=== PATIENT | female | born 1980 | race Caucasian/White ===

== ENCOUNTER 2022-01-04 15:57 | Emergency (ER) | payer MEDICAID, SELFPAY ==
[2022-01-04] VITALS (26 sets, daily range): BP systolic 106–150; BP diastolic 68–86; PULSE 67–84; RESP 11–25; TEMP 36.6; O2SAT 90–100
--- NOTE | 2022-01-04 15:45 | RT.EKG_ITS ---
APPROVED REPORT Exam: Resting ECG Reason for Exam: irregular heart beat Patient Location: E HR:76 bpm ECG Measurements Heart Rate 76 AXIS DE 158 P 82 QRSd 89 QRS 67 QT 363 T 57 QTc 411 Conclusion Sinus rhythm...normal P axis, V-rate 60- 99 Multiple ventricular premature complexes...V complexes w/ short R-R intervls
[2022-01-04 16:50] LABS: Abs Immature Grans 0.02 10^3/uL (0.0-0.06); Absolute Basophil Count 0.04 10^3/uL (0.0-0.2); Absolute Eosinophil Count 0.06 10^3/uL (0.0-0.7); Absolute Lymphocyte Count 1.78 10^3/uL (1.2-3.4); Absolute Neutrophil Count 5.12 10^3/uL (1.2-6.7); Basophils % 0.5; Eosinophils % 0.8; HCT 36.4 % (36.0-46.0); HGB 11.9 g/dL (11.2-15.7); Immature Grans % 0.3; Lymphocytes % 23.7; MCH 28.9 pg (27.0-33.0); MCHC 32.7 % (32.0-36.0); MCV 88.3 fL (80-95); MPV 9.5 fL (8.0-11.0); Monocytes % 6.6; Neutrophils % 68.1; Nucleated RBC 0 %; Platelet Count 252 10^3/uL (130-400); RBC 4.12 10^6/uL (3.93-5.22); RDW 14.6 % (11.7-14.6); RDW-SD 47.7 fL; WBC 7.52 10^3/uL (4.4-10.8)
[2022-01-04 17:15] LABS: HCG Qual (Serum) Negative
[2022-01-04 17:23] LABS: ALT 21 U/L (14-59); AST 13 U/L (15-37); Alkaline Phosphatase 49 U/L (46-116); Anion Gap 10.4 mmol/L (3-11); BUN 15 mg/dL (7-18); Bilirubin, Total 0.4 mg/dL (0.2-1.0); CO2 23.6 mmol/L (21.0-32.0); CREATININE 0.7 mg/dL (0.55-1.02); Calcium 8.6 mg/dL (8.5-10.1); Chloride 104 mmol/L (98-107); Glucose 109 mg/dL (74-106); Lipase 90 U/L (73-393); Magnesium 1.8 mg/dL (1.8-2.4); Potassium 3.3 mmol/L (3.5-5.1); Sodium 138 mmol/L (136-145); TSH (W/Ref FT4) 1.22 uIU/mL (0.36-3.74); Total Protein 7.3 g/dL (6.4-8.2)
--- NOTE | 2022-01-04 18:15 | HOLTER_ITS ---
APPROVED REPORT Conclusion This is a 48-hour Holter monitor ordered for palpitations Predominant rhythm was sinus with an average heart rate of 81. Minimum was 60, maximum 145 There were occasional ventricular ectopic beats, comprising 3.8% of total There were rare atrial premature beats There was no atrial fibrillation, no high-grade AV block, no pauses greater than 3 seconds An episode labeled SVT appeared to be sinus tachycardia, rate 145 There were no apparent patient symptoms
--- NOTE | 2022-01-04 18:43 | NUR.NOTE ---
Nursing Note: Referral given to Care Management for a PCP to establish care with routine follow up. Nataliia Cross
[2022-01-04 18:47] LABS: Troponin I < 50 ng/L (<or=60)
--- NOTE | 2022-01-04 19:00 | ED.GENADUL_ITS ---
Discharge Plan Disposition Patient Disposition: HOME Condition: Stable Discharge Details Clinical Impression: Heart palpitations Primary Care Provider: Reina,Local ED Provider: Ngozi Gary Home Meds and New Rx's Prescriptions: New potassium chloride 20 mEq tablet,ER particles/crystals 20 meq PO DAILY Qty: 5 RF: 0 potassium chloride 20 mEq tablet extended release 20 meq PO DAILY Qty: 5 RF: 0 Discharge Instructions Instructions: Heart Palpitations (ED) Additional Instructions: Return Holter monitor, at the indicated time Keep a journal of anything that might exacerbate your palpitations or fluttering Cut down on your coffee intake or any caffeinated beverage intake that you may have Return earlier should you have chest pain, shortness of breath, or should he have any new or worsening complaints We have placed you in a list for follow-up to establish care with a PCP, this is very important and he should have outpatient assessment Medical Decision Making Mild hypokalemia Supplemented with potassium, 3.3 The remainder of diagnostic labs do not show acute abnormality, EKG within normal limits, PVCs noted Holter monitor placed Does not have PCP, placed on list for follow-up Return precautions discussed and patient expressed understanding No evidence of significant laboratory abnormality contributing patient's symptoms today Low suspicion for coronary artery disease given clinical exam, negative troponin, and very low risk patient for cardiac disease Medical Records Medical records reviewed: Yes I reviewed the patient's medical records. Lab Data Lab results reviewed: Yes I reviewed the patient's lab results. HPI General Mode of arrival: ambulatory . Date/Time Provider Initiated Documentation: 01/04/22 16:28 . Limitations to Documentation: no limitations . Information obtained by: patient . HPI Narrative: This 41-year-old female presents with report of palpitations. When she has palpitations she experiences some pressure. She denies any chest pain. Been going on for the past 2 years but today it has been persistent. She denies any medications. She drinks approximately 4 cups of coffee daily, this is not changed. She denies known exacerbating or alleviating factors. Denies any pleuritic pain associated. Denies any exogenous hormones. Smokes marijuana occasionally. Denies any additional illicit drug use. Denies any associated shortness of breath or nausea. Denies any early family history of cardiac disease. Denies any personal history of hypertension or hyperlipidemia. Related Data Home Medications Medication Instructions Recorded Confirmed potassium chloride 20 meq PO DAILY #5 tab 01/04/22 potassium chloride 20 meq PO DAILY #5 tab 01/04/22 Previous Rx's Medication Instructions Recorded potassium chloride 20 meq PO DAILY #5 tab 01/04/22 potassium chloride 20 meq PO DAILY #5 tab 01/04/22 Allergies Allergy/AdvReac Type Severity Reaction Status Date / Time No Known Allergies Allergy Unverified 01/04/22 16:09 General Stated Complaint: Palpitatns LUIS ENRIQUE: 2 Review of Systems All systems reviewed & are unremarkable except as noted in HPI and below PFSH All Active Problems (Updated 01/04/22 @ 19:02 by LUCRETIA Boggs) Heart palpitations (Acute) Social History Smoking/Tobacco Use Status: Never Smoking risk assessment performed?: Yes Alcohol Intake: current Alcohol Intake frequency: a few times a week Drug use: Occasionally Substance use type: marijuana Do you feel safe at home: Yes Do you feel safe in your relationship?: Yes Exam Const General: cooperative and comfortable Orientation: alert and oriented x3 Eyes Pupils: PERRL Chest Chest: normal inspection of the chest Resp Effort & Inspection: normal respiratory effort Auscultation: clear to auscultation bilaterally Cardio Rate: regular rate Rhythm: regular rhythm Skin General skin exam: no rashes or lesions noted Neuro General: patient alert and patient oriented x3 Motor: strength 5/5 throughout and no pronator drift Sensory Exam: no sensory deficits noted Extrem Other: Distal pulses intact, no calf swelling or tenderness Course Vital Signs Vital signs: Vital Signs Pulse 74 01/04/22 16:03 Respiratory Rate 23 01/04/22 16:03 Blood Pressure 150/86 H 01/04/22 16:03 Pulse Oximetry 100 01/04/22 16:03 Temperature 36.6 C 01/04/22 16:05 Temperature Source Temporal Artery Scan 01/04/22 16:05 Pulse 76 01/04/22 18:15 Pulse 78 01/04/22 18:20 Respiratory Rate 24 01/04/22 18:20 Respiratory Effort 01/04/22 16:09 Blood Pressure 142/77 H 01/04/22 18:15 Blood Pressure Mean 95 01/04/22 18:15 Blood Pressure Position Supine 01/04/22 16:05 Pulse Oximetry 100 01/04/22 18:20 Oxygen Delivery Method Room Air 01/04/22 16:05 Oxygen Flow Rate 0 01/04/22 16:05 Pain Level 0 01/04/22 16:05 Lab/Test Results Lab/Test Results: Laboratory Tests Range/Units 01/04/22 01/04/22 01/04/22 16:35 16:35 16:35 WBC (4.4-10.8) 10^3/uL 7.52 RBC (3.93-5.22) 10^6/uL 4.12 Hgb (11.2-15.7) g/dL 11.9 Hct (36.0-46.0) % 36.4 MCV (80-95) fL 88.3 MCH (27.0-33.0) pg 28.9 MCHC (32.0-36.0) % 32.7 RDW (11.7-14.6) % 14.6 Plt Count (130-400) 10^3/uL 252 MPV (8.0-11.0) fL 9.5 Immature Gran % 0.3 Neutrophils % 68.1 Lymphocytes % 23.7 Monocytes % 6.6 Eosinophils % 0.8 Basophils % 0.5 Nucleated RBC % % 0 Absolute Neutrophils (1.2-6.7) 10^3/uL 5.12 Absolute Lymphocytes (1.2-3.4) 10^3/uL 1.78 Absolute Monocytes (0.1-0.8) 10^3/uL 0.50 Absolute Eosinophils (0.0-0.7) 10^3/uL 0.06 Absolute Basophils (0.0-0.2) 10^3/uL 0.04 Sodium (136-145) mmol/L 138 Potassium (3.5-5.1) mmol/L 3.3 L Chloride (98-107) mmol/L 104 Carbon Dioxide (21.0-32.0) mmol/L 23.6 Anion Gap (3-11) mmol/L 10.4 BUN (7-18) mg/dL 15 Creatinine (0.55-1.02) mg/dL 0.7 Estimated GFR/1.73 m2 (mL/min/1.73m2) >= 60.00 Glucose (74-106) mg/dL 109 H Calcium (8.5-10.1) mg/dL 8.6 Magnesium (1.8-2.4) mg/dL 1.8 Total Bilirubin (0.2-1.0) mg/dL 0.4 AST (15-37) U/L 13 L ALT (14-59) U/L 21 Alkaline Phosphatase (46-116) U/L 49 Troponin I (<or=60) ng/L Total Protein (6.4-8.2) g/dL 7.3 Albumin (3.4-5.0) g/dL 4.0 Lipase (73-393) U/L 90 TSH (0.36-3.74) uIU/mL 1.22 Serum HCG, Qual Negative Range/Units 01/04/22 16:35 WBC (4.4-10.8) 10^3/uL RBC (3.93-5.22) 10^6/uL Hgb (11.2-15.7) g/dL Hct (36.0-46.0) % MCV (80-95) fL MCH (27.0-33.0) pg MCHC (32.0-36.0) % RDW (11.7-14.6) % Plt Count (130-400) 10^3/uL MPV (8.0-11.0) fL Immature Gran % Neutrophils % Lymphocytes % Monocytes % Eosinophils % Basophils % Nucleated RBC % % Absolute Neutrophils (1.2-6.7) 10^3/uL Absolute Lymphocytes (1.2-3.4) 10^3/uL Absolute Monocytes (0.1-0.8) 10^3/uL Absolute Eosinophils (0.0-0.7) 10^3/uL Absolute Basophils (0.0-0.2) 10^3/uL Sodium (136-145) mmol/L Potassium (3.5-5.1) mmol/L Chloride (98-107) mmol/L Carbon Dioxide (21.0-32.0) mmol/L Anion Gap (3-11) mmol/L BUN (7-18) mg/dL Creatinine (0.55-1.02) mg/dL Estimated GFR/1.73 m2 (mL/min/1.73m2) Glucose (74-106) mg/dL Calcium (8.5-10.1) mg/dL Magnesium (1.8-2.4) mg/dL Total Bilirubin (0.2-1.0) mg/dL AST (15-37) U/L ALT (14-59) U/L Alkaline Phosphatase (46-116) U/L Troponin I (<or=60) ng/L < 50 Total Protein (6.4-8.2) g/dL Albumin (3.4-5.0) g/dL Lipase (73-393) U/L TSH (0.36-3.74) uIU/mL Serum HCG, Qual PAWSS Have you Been Recently Intoxicated or Drunk Within the Last 30 days?: No Have you Ever Experienced Previous Episodes of Alcohol Withdrawal?: No Have you ever Experienced Withdrawal Seizures?: No Have you ever Experienced Delirium Tremens(DT)s?: No Have you ever undergone Alcohol Rehabilitation Treatment (i.e, inpt ot outpatient treatment programs)?: No Have you ever Experienced Blackouts?: No Have you ever Combined Alcohol with other Downers within the last 90 days?: No Have you ever Combined Alcohol with any other Substance of Abuse during the last 90 days?: No Positive Blood Alcohol level on Presentation? [PCS.BAL]: No Evidence of Increased Autonomic Activity (i.e. HR>120, tremor, sweating, agitation, nausea)?: No Result: 0
[2022-01-04] MEDS: Potassium Chloride 20 MEQ TABCR PO (19:14)
--- NOTE | 2022-01-05 11:28 | CMACTNOTE_ITS ---
- If Service Date Differs Date of service: 01/05/22 Time of Service: 11:29 Care Management Activity Note Ayala is seen in the ED for heart palpitations. At the request of ED provider, CM coordinates a referral to YELENA Patel, of [facility], on-call provider, to assist Ayala in obtaining a follow up appointment and in establishing care with a PCP. She has Medicaid for insurance.
== END 2022-01-04 19:15 | disposition home or self-care (01) ==
PROVIDERS: Emergency Provider Physician Assistant
DX: R00.2 Palpitations (principal); E87.6 Hypokalemia; R07.89 Other chest pain
CPT/HCPCS: 80053; 83690; 93005; 99284; 83735; 84443; 84484; 84703; 85025; 93010; 93225; 99283

== ENCOUNTER 2022-01-04 18:19 | Outpatient (RCR) | payer MEDICAID, SELFPAY | END 2022-01-26 23:59 | disposition home or self-care (01) | LOC: RT 18:19 | PROVIDERS: Visit Provider Physician Assistant | DX: R55 Syncope and collapse (principal) | CPT/HCPCS: 93225; 93226 ==

== ENCOUNTER 2023-01-11 10:17 | Emergency (ER) | payer MEDICAID, SELFPAY ==
[2023-01-11] VITALS (95 sets, daily range): BP systolic 104–132; BP diastolic 57–75; PULSE 69–97; RESP 12–26; TEMP 37; O2SAT 96–99
--- NOTE | 2023-01-11 10:15 | RT.EKG_ITS ---
APPROVED REPORT Exam: Resting ECG Reason for Exam: heart palpitations dizzy Patient Location: E HR:96 bpm ECG Measurements Heart Rate 96 AXIS RI 143 P 81 QRSd 81 QRS 67 QT 339 T 52 QTc 421 Conclusion Sinus rhythm...normal P axis, V-rate 60- 99 Ventricular premature complex...V complex w/ short R-R interval
--- NOTE | 2023-01-11 10:30 | DI.RAD_ITS ---
Exam(s) XR CHEST 2V PA LATERAL EXAM: XR CHEST 2V PA LATERAL CLINICAL HISTORY: Palpitation, near syncope TECHNIQUE: 2D digital imaging was performed. COMPARISON: No exams were available for comparison FINDINGS: HEART: Normal size. Aorta: Not dilated. PULMONARY VASCULATURE: Normal. LUNGS: Hyperinflated. Clear. PLEURAL SPACE: No pleural effusion or pneumothorax. BONE:Unremarkable for age. IMPRESSION: No acute abnormality. DATA REPOSITORY: RADIATION DOSE DELIVERED:
--- NOTE | 2023-01-11 10:48 | ED.GENADUL_ITS ---
Discharge Plan Disposition Patient Disposition: Home Discharge Details Clinical Impression: Palpitations, Anxiety Primary Care Provider: Reina,Local ED Provider: Madeline Ramos Home Meds and New Rx's Prescriptions: New hydroxyzine HCl 10 mg tablet 10 mg PO TID PRN (Reason: anxiety) Qty: 10 0RF Rx Instructions: You may take 1 tablet at bedtime or up to 3 times daily as needed for anxiet y. It will make you sleepy. Please do not operate heavy machinery while taking this medication. No Action potassium chloride 20 mEq tablet,ER particles/crystals 20 meq PO DAILY Qty: 5 0RF potassium chloride 20 mEq tablet extended release 20 meq PO DAILY Qty: 5 0RF Discharge Instructions Instructions: Heart Palpitations (ED), Anxiety (ED) Additional Instructions: Please take the hydroxyzine medication as directed as needed for anxiety and palpitations. Do not operate heavy machinery while taking the medications. Wear the Holter monitor and have it removed as instructed by monitoring engineer. You are placed on care management list to assist in PCP establishment. Care management should be calling you or you can call around to make an appointment. Follow up with primary care provider in7-10 days. Return to ED sooner if any worsening or concerns. Increase oral fluids. Your labs and work-up were largely unremarkable no electrolyte abnormality no evidence of cardiac injury. Chest x-ray shows no cardiopulmonary or heart or lung abnormality. Discharge Data Discharge Date/Time-TO BE ENTERED AT DEPARTURE: 01/11/23 14:01 Medical Decision Making 42-year-old female presents to the ER with a chief complaint of palpitations, near syncope and feeling jittery for the last couple days she does have a history of anxiety. She does report some shortness of breath. Vital signs are stable upon arrival. EKG was reviewed by Dr. Alejandro Bullock ER attending, EKG does show slight ST elevation, please see official report. Work-up ordered including serial troponin, chest x-ray, and urine test D-dimer. Differential diagnosis includes CAD, long COVID, PE. Anxiety. She does state that she had COVID in November and tested negative on 13 December. Denies any cough fever nausea vomiting diarrhea or any other associated symptoms. She does not take any medications on a regular basis. She denies any control, recent long trips on the plane or car or swelling in her extremities. Cardiac work-up unremarkable to this point, no leukocytosis, electrolytes are all within normal limits, D-dimer is 149 which is within normal limits, initial troponin less than 50 which is negative, urinalysis also negative. Chest x-ray shows no acute abnormality. Holter monitor ordered and placed on patient for 48 hours. She has had this in the past approximately a year ago. At this time repeat troponin and repeat EKG pending. 1311: Repeat EKG shows no significant change occasional PVCs please see official report. Repeat troponin within normal limits, Discussed home care follow-up care with patient strict return instructions, patient given low-dose hydroxyzine as needed for anxiety. She verbalizes understanding is in agreement with plan of care. Patient was placed on care management list to assist her with PCP establishment. This text was generated using [employer] system, please disregard any oddities of phrase or misspellings. Medical Records Medical records reviewed: Yes I reviewed the patient's medical records. Imaging Data Radiologic Study: Imaging: X-Ray Radiologist's impression: EXAM:? XR CHEST 2V PA ? LATERAL CLINICAL HISTORY:? Palpitation, near syncope TECHNIQUE:? 2D digital imaging was performed. COMPARISON:? No exams were available for comparison FINDINGS: HEART: Normal size.? Aorta: Not dilated. PULMONARY VASCULATURE: Normal. LUNGS: Hyperinflated.? Clear. ? PLEURAL SPACE: No pleural effusion or pneumothorax. BONE:Unremarkable for age.? IMPRESSION: No acute abnormality.? Lab Data Lab results reviewed: Yes I reviewed the patient's lab results. Labs: Laboratory Tests Range/Units 01/11/23 01/11/23 01/11/23 10:57 10:57 10:57 WBC (4.4-10.8) 10^3/uL 6.87 RBC (3.93-5.22) 10^6/uL 4.16 Hgb (11.2-15.7) g/dL 12.3 Hct (36.0-46.0) % 36.8 MCV (80-95) fL 89 MCH (27.0-33.0) pg 29.6 MCHC (32.0-36.0) % 33.4 RDW (11.7-14.6) % 13.4 Plt Count (130-400) 10^3/uL 228 MPV (8.0-11.0) fL 10.0 Immature Gran % 0.3 Neutrophils % 74.9 Lymphocytes % 17.6 Monocytes % 6.4 Eosinophils % 0.4 Basophils % 0.4 Nucleated RBC % (0.0-0.3) % 0.0 Absolute Neutrophils (1.2-6.7) 10^3/uL 5.14 Absolute Lymphocytes (1.2-3.4) 10^3/uL 1.21 Absolute Monocytes (0.1-0.8) 10^3/uL 0.44 Absolute Eosinophils (0.0-0.7) 10^3/uL 0.03 Absolute Basophils (0.0-0.2) 10^3/uL 0.03 D-Dimer (<500) ng/mlFEU 149 Sodium (136-145) mmol/L 140 Potassium (3.5-5.1) mmol/L 3.8 Chloride (98-107) mmol/L 105 Carbon Dioxide (21.0-32.0) mmol/L 24.6 Anion Gap (3-11) mmol/L 10.4 BUN (7-18) mg/dL 11 Creatinine (0.55-1.02) mg/dL 0.6 Est GFR (CKD-EPI 2020) (mL/min/1.73m2) 114.15 Glucose (74-106) mg/dL 100 Calcium (8.5-10.1) mg/dL 9.2 Magnesium (1.8-2.4) mg/dL 1.8 Total Bilirubin (0.2-1.0) mg/dL 0.6 AST (15-37) U/L 17 ALT (14-59) U/L 19 Alkaline Phosphatase (46-116) U/L 50 Troponin I (<or=60) ng/L < 50 Total Protein (6.4-8.2) g/dL 7.0 Albumin (3.4-5.0) g/dL 3.9 Urine Color (Yellow) Urine Clarity (Clear) Urine pH (5-8) Ur Specific [place] (1.005-1.025) Urine Protein (Negative) mg/dL Urine Ketones (Negative) mg/dL Urine Blood (Negative) Urine Nitrite (Negative) Urine Bilirubin (Negative) Urine Urobilinogen (Up TO 0.2) EU/dL Ur Leukocyte Esterase (Negative) Urine Glucose (Negative) mg/dL Range/Units 01/11/23 11:03 WBC (4.4-10.8) 10^3/uL RBC (3.93-5.22) 10^6/uL Hgb (11.2-15.7) g/dL Hct (36.0-46.0) % MCV (80-95) fL MCH (27.0-33.0) pg MCHC (32.0-36.0) % RDW (11.7-14.6) % Plt Count (130-400) 10^3/uL MPV (8.0-11.0) fL Immature Gran % Neutrophils % Lymphocytes % Monocytes % Eosinophils % Basophils % Nucleated RBC % (0.0-0.3) % Absolute Neutrophils (1.2-6.7) 10^3/uL Absolute Lymphocytes (1.2-3.4) 10^3/uL Absolute Monocytes (0.1-0.8) 10^3/uL Absolute Eosinophils (0.0-0.7) 10^3/uL Absolute Basophils (0.0-0.2) 10^3/uL D-Dimer (<500) ng/mlFEU Sodium (136-145) mmol/L Potassium (3.5-5.1) mmol/L Chloride (98-107) mmol/L Carbon Dioxide (21.0-32.0) mmol/L Anion Gap (3-11) mmol/L BUN (7-18) mg/dL Creatinine (0.55-1.02) mg/dL Est GFR (CKD-EPI 2020) (mL/min/1.73m2) Glucose (74-106) mg/dL Calcium (8.5-10.1) mg/dL Magnesium (1.8-2.4) mg/dL Total Bilirubin (0.2-1.0) mg/dL AST (15-37) U/L ALT (14-59) U/L Alkaline Phosphatase (46-116) U/L Troponin I (<or=60) ng/L Total Protein (6.4-8.2) g/dL Albumin (3.4-5.0) g/dL Urine Color (Yellow) Yellow Urine Clarity (Clear) Clear Urine pH (5-8) 7.0 Ur Specific [place] (1.005-1.025) 1.015 Urine Protein (Negative) mg/dL Negative Urine Ketones (Negative) mg/dL Negative Urine Blood (Negative) Negative Urine Nitrite (Negative) Negative Urine Bilirubin (Negative) Negative Urine Urobilinogen (Up TO 0.2) EU/dL 0.2 Ur Leukocyte Esterase (Negative) Negative Urine Glucose (Negative) mg/dL Negative HPI General Date/Time Provider Initiated Documentation: 01/11/23 10:22 . Related Data Home Medications Medication Instructions Recorded Confirmed potassium chloride 20 mEq 20 meq PO DAILY #5 tabs 01/04/22 tablet,extended release potassium chloride 20 mEq 20 meq PO DAILY #5 tabs 01/04/22 tablet,extended release(part/cryst) hydroxyzine HCl 10 mg tablet 10 mg PO TID PRN anxiety #10 tabs 01/11/23 Previous Rx's Medication Instructions Recorded potassium chloride 20 mEq 20 meq PO DAILY #5 tabs 01/04/22 tablet,extended release potassium chloride 20 mEq 20 meq PO DAILY #5 tabs 01/04/22 tablet,extended release(part/cryst) hydroxyzine HCl 10 mg tablet 10 mg PO TID PRN anxiety #10 tabs 01/11/23 Allergies Allergy/AdvReac Type Severity Reaction Status Date / Time No Known Allergies Allergy Unverified 01/04/22 16:09 General Stated Complaint: Chest Pain LUIS ENRIQUE: 3 Review of Systems All systems reviewed & are unremarkable except as noted in HPI and below Cardiovascular Cardiovascular: Denies chest pain, Denies chest pain at rest, Denies syncope, Reports palpitations, Reports dyspnea and Denies dyspnea on exertion Comments: Pain reproducible with palpation and movement Respiratory Respiratory: Denies hemoptysis, Reports dyspnea and Denies dyspnea on exertion Gastrointestinal Gastrointestinal: Denies diarrhea, Denies nausea and Denies vomiting Musculoskeletal Musculoskeletal: Reports as per HPI Neurologic Neurologic: Denies syncope Endocrine Endocrine: Reports palpitations [facility] All Active Problems (Updated 01/11/23 @ 13:39 by Madeline Ramos NP) Palpitations (Acute) Anxiety (Chronic) Social History Smoking/Tobacco Use Status: Never Smoking risk assessment performed?: Yes Alcohol Intake: current Alcohol Intake frequency: a few times a week Drug use: Occasionally Substance use type: marijuana Do you feel safe at home: Yes Do you feel safe in your relationship?: Yes Exam Narrative Exam Narrative: Constitutional: Alert and oriented x3. Appears stated age. Normal body habitus. Head: Normocephalic, no trauma. Eyes: Pupils PERRL, Red reflex noted, EOM's intact. Eyelids symmetrical without lesions, discharge, or swelling. ENT: Bilateral TM's WNL, External ear normal to inspection, no mastoid TTP, swelling, or erythema, Nasal turbinates WNL, no nasal discharge. Normal dentition, Posterior pharynx WNL, no exudate. Chest: RRR, Normal S1, S2, distal pulses intact. Resp: Lungs clear to auscultation bilaterally, no wheezes, rales, or rhonchi. Abdomen: Soft, non-distended, Normoactive bowel sounds all 4 quads. Musculoskeletal: Normal gait, 5/5 strength to all four extremities. Skin: No suspicious rashes or lesions. Capillary refill less than 2 sec. Neurologic: Cranial nerves II-XII intact. Alert and oriented x 3. Motor: No deficits noted. Sensory: Intact bilaterally all 4 extremities. Reflexes: DTR's intact bilaterally.. Hematologic/Lymphatic: No ecchymosis, no lymphadenopathy. Course Vital Signs Vital signs: Vital Signs Respiratory Rate 18 01/11/23 10:22 Temperature 37.0 C 01/11/23 10:26 Temperature Source Oral 01/11/23 10:26 Pulse 87 01/11/23 10:26 Respiratory Rate 18 01/11/23 10:26 Respiratory Effort Normal, Non-Labored 01/11/23 10:22 Respiratory Depth Normal 01/11/23 10:22 Respiratory Pattern Normal 01/11/23 10:22 Blood Pressure 117/70 01/11/23 10:26 Pulse Oximetry 98 01/11/23 10:26 Oxygen Delivery Method Room Air 01/11/23 10:26 Oxygen Flow Rate 0 01/11/23 10:26
[2023-01-11 11:12] LABS: Abs Immature Grans 0.02 10^3/uL (0.0-0.06); Absolute Basophil Count 0.03 10^3/uL (0.0-0.2); Absolute Eosinophil Count 0.03 10^3/uL (0.0-0.7); Absolute Lymphocyte Count 1.21 10^3/uL (1.2-3.4); Absolute Monocyte Count 0.44 10^3/uL (0.1-0.8); Absolute Neutrophil Count 5.14 10^3/uL (1.2-6.7); Basophils % 0.4; Eosinophils % 0.4; HCT 36.8 % (36.0-46.0); HGB 12.3 g/dL (11.2-15.7); Immature Grans % 0.3; Lymphocytes % 17.6; MCH 29.6 pg (27.0-33.0); MCHC 33.4 % (32.0-36.0); MCV 89 fL (80-95); Monocytes % 6.4; Neutrophils % 74.9; Platelet Count 228 10^3/uL (130-400); RBC 4.16 10^6/uL (3.93-5.22); RDW 13.4 % (11.7-14.6); RDW-SD 43.6 fL; WBC 6.87 10^3/uL (4.4-10.8)
[2023-01-11 11:19] LABS: Bilirubin Negative (Negative); Blood Negative (Negative); Clarity Clear (Clear); Glucose Negative (Negative); Ketones Negative (Negative); Leukocyte Esterase Negative (Negative); Nitrite Negative (Negative); Specific Gravity 1.015 (1.005-1.025); Urobilinogen 0.2 EU/dL (Up TO 0.2)
[2023-01-11 11:34] LABS: ALT 19 U/L (14-59); AST 17 U/L (15-37); Albumin 3.9 g/dL (3.4-5.0); Alkaline Phosphatase 50 U/L (46-116); Anion Gap 10.4 mmol/L (3-11); BUN 11 mg/dL (7-18); Bilirubin, Total 0.6 mg/dL (0.2-1.0); CO2 24.6 mmol/L (21.0-32.0); CREATININE 0.6 mg/dL (0.55-1.02); Calcium 9.2 mg/dL (8.5-10.1); Chloride 105 mmol/L (98-107); Estimated GFR 114.15 (mL/min/1.73m2); Glucose 100 mg/dL (74-106); Magnesium 1.8 mg/dL (1.8-2.4); Potassium 3.8 mmol/L (3.5-5.1); Sodium 140 mmol/L (136-145); Troponin I < 50 ng/L (<or=60)
[2023-01-11 11:40] LABS: D-Dimer 149 ng/mlFEU (<500)
--- NOTE | 2023-01-11 12:00 | HOLTER_ITS ---
APPROVED REPORT Conclusion This is a 48-hour Holter monitor ordered for palpitations Rhythm throughout was sinus with an average heart rate of 79. Minimum was 61, maximum 148 There were moderately frequent ventricular ectopic beats, rare couplets, no ventricular tachycardia There was no atrial fibrillation no high-grade AV block no pauses greater than 3 seconds
--- NOTE | 2023-01-11 12:45 | RT.EKG_ITS ---
APPROVED REPORT Exam: Resting ECG Reason for Exam: Repeat, Palpitations, SOB Patient Location: E HR:79 bpm ECG Measurements Heart Rate 79 AXIS MD 152 P 78 QRSd 83 QRS 73 QT 372 T 24 QTc 429 Conclusion Sinus rhythm...normal P axis, V-rate 60- 99 Ventricular premature complex...V complex w/ short R-R interval Physician: no stemi
[2023-01-11 13:27] LABS: Troponin I < 50 ng/L (<or=60)
--- NOTE | 2023-01-11 13:40 | NUR.NOTE ---
holter monitor has been applied to pt
--- NOTE | 2023-01-11 13:48 | NUR.NOTE ---
Nursing Note:Referral given to Care Management for needs PCP, establish care, palpitations, holter monitor results/1 to 2 weeks.
== END 2023-01-11 14:01 | disposition home or self-care (01) ==
PROVIDERS: Emergency Provider Registered Nurse Emergency
DX: F41.9 Anxiety disorder, unspecified (principal); R00.2 Palpitations; R55 Syncope and collapse
CPT/HCPCS: 36415; 80053; 81025; 93005; 99284; 71046; 81003; 83735; 84484; 85025; 85379; 93010; 93225; 99285

== ENCOUNTER 2023-01-11 12:15 | Outpatient (RCR) | payer MEDICAID, SELFPAY | END 2023-01-26 23:59 | disposition home or self-care (01) | LOC: CARDOPNVT 12:15 | PROVIDERS: Visit Provider Student in an Organized Health Care Education/Training Program | DX: R00.2 Palpitations (principal) | CPT/HCPCS: 93225; 93226 ==

== ENCOUNTER 2023-09-24 22:04 | Outpatient (REF) | payer MEDICAID, SELFPAY ==
[2023-09-24 21:35] LABS: Bilirubin Negative (Negative); Blood Large (Negative); Clarity Clear (Clear); Glucose Negative (Negative); Ketones Negative (Negative); Leukocyte Esterase Large (Negative); Nitrite Negative (Negative); Urobilinogen 0.2 mg/dL (Up to 0.2); pH 6.5 (5-8)
[2023-09-24 21:44] LABS: Bacteria Few HPF (Negative); Epithelial Cells Rare HPF (Negative); WBC >50 HPF (0-5)
[2023-09-24 21:45] LABS: C & S Indicated? Yes; Casts Negative LPF (Negative); Crystals Negative HPF (Negative); Mucus Trace (Negative)
== END 2023-09-24 22:05 | disposition home or self-care (01) ==
LOC: LBN 22:04
PROVIDERS: Visit Provider Nurse Practitioner Family
DX: N39.0 Urinary tract infection, site not specified (principal)
CPT/HCPCS: 87077; 81003; 81015; 87086; 87186

== ENCOUNTER 2025-04-20 00:34 | Outpatient (CLI) | payer MEDICAID, SELFPAY ==
--- NOTE | 2025-04-20 07:45 | DI.RAD_ITS ---
Exam(s) XR CHEST 2V PA LATERAL EXAM: XR CHEST 2V PA LATERAL CLINICAL HISTORY: cough, ? pneumonia TECHNIQUE: 2D digital imaging was performed. Two views. COMPARISON: No exams were available for comparison FINDINGS: HEART: Normal size. Aorta: Not dilated. PULMONARY VASCULATURE: Normal. MEDIASTINUM: Unremarkable. LUNGS: Hyperinflated but clear. PLEURAL SPACE: No pleural effusion or pneumothorax. BONE:Unremarkable for age. SOFT TISSUES: Unremarkable. IMPRESSION: No acute abnormality. DATA REPOSITORY: RADIATION DOSE DELIVERED:
== END 2025-04-20 00:54 ==
LOC: DI 00:37
PROVIDERS: Visit Provider Physician Assistant
DX: R05.9 Cough, unspecified (principal)
CPT/HCPCS: 71046

== ENCOUNTER 2025-05-21 18:30 | Outpatient (REF) | payer MEDICAID, SELFPAY ==
[2025-05-21 19:43] LABS: Abs Immature Grans 0.02 10^3/uL (0.0-0.06); Absolute Basophil Count 0.03 10^3/uL (0.0-0.2); Absolute Eosinophil Count 0.05 10^3/uL (0.0-0.7); Absolute Lymphocyte Count 1.75 10^3/uL (1.2-3.4); Absolute Monocyte Count 0.54 10^3/uL (0.1-0.8); Absolute Neutrophil Count 5.63 10^3/uL (1.2-6.7); Basophils % 0.4 %; Eosinophils % 0.6 %; HCT 34.8 % (36.0-46.0); HGB 10.9 g/dL (11.2-15.7); Immature Grans % 0.2 %; Lymphocytes % 21.8 %; MCHC 31.3 % (32.0-36.0); MCV 86 fL (80-95); MPV 9.7 fL (8.0-11.0); Monocytes % 6.7 %; Neutrophils % 70.3 %; Platelet Count 293 10^3/uL (130-400); RBC 4.04 10^6/uL (3.93-5.22); RDW 14.9 % (11.7-14.6); RDW-SD 47.4 fL; WBC 8.02 10^3/uL (4.4-10.8)
[2025-05-21 20:05] LABS: Hemoglobin A1C 5.4 % (<5.7)
[2025-05-21 20:27] LABS: ALT 41 U/L (14-59); AST 23 U/L (15-37); Albumin 4.2 g/dL (3.4-5.0); Alkaline Phosphatase 65 U/L (46-116); Anion Gap 7.3 mmol/L (3-11); BUN 13 mg/dL (7-18); Bilirubin, Total 0.4 mg/dL (0.2-1.0); CO2 28.7 mmol/L (21.0-32.0); CREATININE 0.8 mg/dL (0.55-1.02); Calcium 8.8 mg/dL (8.5-10.1); Calculated LDL 72 mg/dL (<100); Chloride 102 mmol/L (98-107); Cholesterol 152 mg/dL (<200); Estimated GFR 92.54 (mL/min/1.73m2); Glucose 86 mg/dL (74-106); HDL Cholesterol 73 mg/dL (>or=50); Potassium 3.7 mmol/L (3.5-5.1); Sodium 138 mmol/L (136-145); TSH (W/Ref FT4) 1.49 uIU/mL (0.36-3.74); Total Protein 7.1 g/dL (6.4-8.2); Triglyceride 37 mg/dL (<150); Vitamin D 25 Total 19 ng/mL (30-100)
[2025-05-22 19:46] LABS: HIV-1/2 Ag & Ab Screen Negative (Negative)
[2025-05-22 19:49] LABS: Hepatitis C Ab w Rflx HCV PCR Negative (Negative)
== END 2025-05-21 18:31 | disposition home or self-care (01) ==
LOC: NCHCN 18:30
PROVIDERS: Visit Provider Nurse Practitioner Family
DX: Z13.220 Encounter for screening for lipoid disorders (principal); N92.0 Excessive and frequent menstruation with regular cycle; R53.82 Chronic fatigue, unspecified; Z13.1 Encounter for screening for diabetes mellitus; Z11.59 Encounter for screening for other viral diseases; Z11.4 Encounter for screening for human immunodeficiency virus [HIV]
CPT/HCPCS: 80053; 80061; 82306; 86803; 87389; 83036; 84443; 85025

== ENCOUNTER 2025-06-18 00:26 | Outpatient (CLI) | payer MEDICAID, SELFPAY ==
--- NOTE | 2025-06-18 | DI.MAMMO_ITS ---
Exam(s) MAMMO SCREENING EXAM: MAMMO SCREENING CLINICAL HISTORY: SCREENING MAMMO Z12.31,BASELINE TECHNIQUE: Mammograms were interpreted according to the usual protocol including computer analysis with CAD system, tomosynthesis and C-view imaging. COMPARISON: None. Baseline examination FINDINGS: The breasts are composed of heterogeneously dense fibroglandular densities, Breast Density category C. No suspicious masses or suspicious microcalcifications are seen. No skin thickening or abnormal axillary lymph nodes are seen. IMPRESSION: BI-RADS Category 1, Negative mammogram. Yearly screening mammography is recommended. Breast Density: Category C - The breasts are heterogeneously dense, which may obscure small masses. Breast density Category C or D implies that the patient has dense breast tissue. Dense breast tissue can make it harder to find cancer on a mammogram. Dense breast tissue is also associated with an increased risk of breast cancer. This information about the result of the mammogram report was provided to the patient to raise their awareness. Use this report when you speak with the patient about their risks for breast cancer, which includes their family history. At that time, you may recommend additional screening tests (Ultrasound or MRI) as these tests may add significant information. A negative radiographic report should not delay biopsy if a dominant or clinically suspicious mass is present. Up to ten percent of cancers are not identified on mammography. A negative report may reinforce clinical impression. Adenosis and dense breasts may obscure an underlying neoplasm. False positive reports average 6 to 10%.
== END 2025-06-18 00:46 ==
LOC: DI 00:27
PROVIDERS: PCP Nurse Practitioner Family; Visit Provider Nurse Practitioner Family
DX: Z12.31 Encounter for screening mammogram for malignant neoplasm of breast (principal); R92.333 Mammographic heterogeneous density, bilateral breasts
CPT/HCPCS: 77063; 77067

== ENCOUNTER 2025-06-21 08:24 | Day surgery (SDC) | payer MEDICAID, SELFPAY ==
[2025-06-21 08:39] VITALS: BP 125/79; PULSE 75; RESP 16; TEMP 36.1; O2SAT 98
[2025-06-21] MEDS: Lactated Ringers 1,000 ML 80 ML IV (08:58)
--- NOTE | 2025-06-21 09:16 | W.ANESPRE ---
General Info Date of Service Date Performed: 06/21/25 Height: 5 ft 6.25 in Weight: 66.6 kg Body Mass Index (BMI): 23.5 Surgical Procedure: Operation Date: 06/21/25 10:35 Proposed Procedure Side Surgeon milvia Elkins MD Meds Allergies and Home Medications Allergies Allergy/AdvReac Type Severity Reaction Status Date / Time No Known Allergies Allergy Verified 06/21/25 08:37 Home Medication ?Medication ?Instructions ?Recorded hydroxyzine HCl 10 mg tablet 10 mg PO TID PRN anxiety #10 tabs 01/11/23 albuterol sulfate 90 mcg/actuation 2 puff inhalation Q6H PRN 04/19/25 aerosol inhaler shortness of breath or wheezing #8.5 grams inhalational spacing device #1 ea 04/19/25 (Aerochamber MV spacer) bisacodyl 5 mg tablet,delayed 5 mg PO ONCE #4 tabs 06/13/25 release (Dulcolax (bisacodyl)) polyethylene glycol 3350 17 17 g PO ONCE #238 grams 06/13/25 gram/dose oral powder Current Visit Medications: Current Medications Generic Name Dose Route Start Last Admin Trade Name Freq PRN Reason Stop Dose Admin Ringer's Solution 1,000 mls @ 80 mls/hr 06/21/25 06:00 06/21/25 08:58 IV 06/21/25 23:59 80 mls/hr INFUSION JOEL Administration IV Miscellaneous Supplies 1 each 06/21/25 06:00 Iv Access IV 06/21/25 23:59 DIRECTED JOEL Sodium Biphosphate/Sodium Phosphate 133 ml 06/21/25 06:00 Na Phosphate Enema-Adult 133 Ml Btl OR 06/21/25 16:00 DIRECTED PRN Sodium Chloride 0 ml 06/21/25 06:00 Normal Saline Flush 10 Ml Syr IV 06/21/25 23:59 PRN PRN Sodium Chloride 0 ml 06/21/25 06:00 Normal Saline 10 Ml Vial IJ 06/21/25 23:59 DIRECTED PRN Sterile Water 0 ml 06/21/25 06:00 Water,Injection,Sterile 10 Ml Vial IJ 06/21/25 23:59 DIRECTED PRN PFSH Tobacco Smoking/Tobacco Use Status: Never Alcohol Alcohol Intake: current Alcohol intake frequency: a few times a week Substance Use Substance use: Occasionally Substance use type: marijuana Vital Signs and Lab Results Vital Signs Most Recent Vital Signs in EMR: Most Recent Vital Signs Temp Pulse Resp BP Pulse Ox 36.1 C L 75 16 125/79 98 06/21/25 08:39 06/21/25 08:39 06/21/25 08:39 06/21/25 08:39 06/21/25 08:39 Anesthesia Assessment and Plan Anesthesia History Personal History: No History of Anesthesia Complications Family History: No Family History of Anesthesia Complications Exercise Tolerance Exercise Tolerance: Metabolic Equivalents>4 Pertinent Negatives Pertinent Negatives: No Symptoms of GERD Cardiac & Pulmonary Exam Cardiac Exam: Normal S1/S2 Heart Sounds Pulmonary Exam: Clear Bilateral Breath Sounds Implantable Cardiac Device Does patient have a Pacemaker or an ICD?: No Airway Exam Known Difficult Airway: No Mallampati Class: 2 Mouth Opening: Normal (> 3cm) Thyromental Distance: Greater than 3 cm Neck Range of Motion: Full ROM Neck Circumference: Normal Teeth Condition: Normal Dentition ASA Classification ASA Score: ASA 2 Emergency Case?: No NPO Status NPO Status: NPO Clears >2 hours, Solids >8 hours Status Status: Negative HCG Anesthesia Plan Resuscitation Status: Full Code Anesthesia Technique: General Anesthesia Airway Planned: Natural Airway Monitors Used: Standard Monitors
[2025-06-21 09:18] VITALS: BMI 23.5
--- NOTE | 2025-06-21 09:50 | BOWEL_PTH ---
PATIENT: Ayala Galloway LOC: [facility] U#:[id number] AGE/SX: 44/F ROOM: RE06/21/[address]: Vicki Elkins MD : 1980 BED: DIS: 06/21/2025 SPEC #: [id number] RECD: 06/21/25 13:03 STATUS: KAJAL RECali #: [id number] SAFIA: 06/21/25 09:[address]: Vicki Elkins DEPT: Surgical Specimen RECD BY: Ngozi Isaac ENTERED: 06/21/25 13:05 SP TYPE: Bowel OTHR DR: Danya Deras Tissues: 1 - BIOPSY BOWEL 2 - BIOPSY BOWEL Procedures: GROSS AND MICRO LEVEL 4 Comments: [id number]
--- NOTE | 2025-06-21 09:57 | W.COLOREPORT ---
Date of service: 06/21/25 Time of Service: 09:57 Colonoscopy Report Date of procedure: 06/21/25 Pre-op diagnosis general: Screening for colorectal cancer Post-op diagnosis procedure note: other (rectum polyp) Procedure: Colonoscopy with hot snare rectal polypectomy and cold forceps biopsy Surgeon: Vicki Elkins Anesthesia Type: MAC Estimated blood loss (mL): 1 Pathology: other (1. Rectal polyp. 2. Rectal polyp base) Complications: None Disposition: same day Indications: screening for colorectal cancer, average risk Prep: Miralax/Dulcolax Procedure Description: Consent obtained Time out performed Patient positioned in left lateral decubitus position Flexible colonoscopy inserted through the anus into the rectum and advanced to the cecum cecum identified by appendiceal orifice and ileocecal valve. endoscope withdrawn and mucosa examined. Ascending, transverse, descending colon examined. Rectum examined. Endoscope retroflexed and the anal verge examined. Rectum with large pedunculated polyp on a long stalk. Location is 10cm from the verge, above the third rectal fold from the anus. Size is 10mm by 17mm. Excised at the stalk by hot snare. Not able to retrieve through suction trap due to size, so removed manually at the tip of the endoscopy. Scope reinserted. Base of lesion with edematous pattern, stalk base biopsied by cold forceps to ensure negative margin. Grade 2 internal hemorrhoids without complication. ASSESSMENT AND PLAN: large pedunculated rectum polyp seen and excised today. Base of lesion biopsied to ensure negative margin and complete removal. Will review the biopsy to determine next steps in care and timing of next colonoscopy.
[2025-06-21 10:00] VITALS: BP 104/69; PULSE 66; RESP 16; TEMP 36.2; O2SAT 100
--- NOTE | 2025-06-21 10:06 | W.PM.DSUDISC ---
Date of service: 06/21/25 Discharge Plan Disposition Patient Disposition: Home Condition: Stable Discharge Details Attending Provider: Vicki Elkins Primary Care Provider: Danya Deras Home Meds and New Rx's Prescriptions: No Action albuterol sulfate 90 mcg/actuation HFA aerosol inhaler 2 puff inhalation Q6H PRN (Reason: shortness of breath or wheezing) Qty: 8.5 0RF (DME) Aerochamber MV Spacer See Rx Instructions .ROUTE .MEDSUPPLY Qty: 1 0RF Rx Instructions: As directed bisacodyl [Dulcolax (bisacodyl)] 5 mg tablet,delayed release (DR/EC) 5 mg PO ONCE Qty: 4 0RF Rx Instructions: Take per colonoscopy instructions provided by ordering providers office polyethylene glycol 3350 17 gram/dose powder 17 g PO ONCE Qty: 238 0RF Rx Instructions: Take per colonoscopy instructions provided by ordering providers office hydroxyzine HCl 10 mg tablet 10 mg PO TID PRN (Reason: anxiety) Qty: 10 0RF Rx Instructions: You may take 1 tablet at bedtime or up to 3 times daily as needed for anxiety. It will make you sleepy. Please do not operate heavy machinery while taking this medication. Discharge Instructions Instructions: Colon polyps, Colon Polypectomy, Colonoscopy Additional Instructions: large polyp seen and removed from the rectum today. It was the only one you had. I will review the biopsy when it is back in 7-10 days to determine the next steps in your care and the best timing of your next colonoscopy. I will let you know by phone when I get the results back and let you know the plan. I suspect we will want to repeat the colonoscopy in 1-3 years depending on what kind of polyp it ends up being on the biopsy. Stand Alone Forms: Anesthesia Discharge InstTobias, Rigo Patel (DSU) DS: Diagnosis Discharge Diagnosis (1) Screening for colorectal cancer: Status: Acute Asessment and Plan: Colonoscopy completed (2) Rectal polyp: Status: Acute Asessment and Plan: Polyp removed, will follow up with patient when biopsy results are available.
[2025-06-21 10:29] VITALS: BP 116/69; PULSE 63; RESP 16; TEMP 36.1; O2SAT 100
--- NOTE | 2025-06-21 10:55 | W.ANESPOSTOP ---
Postoperative Evaluation Date, Time and Location Date Performed: 06/21/25 Time Performed: 10:55 Patient Location: Day Surgery Unit Vital Signs Most Recent Imported Vital Signs: Most Recent Vital Signs Temp Pulse Resp BP Pulse Ox 36.1 C L 63 16 116/69 100 06/21/25 10:29 06/21/25 10:29 06/21/25 10:29 06/21/25 10:29 06/21/25 10:29 Pain Score Most Recent Pain Score: Most Recent Pain Score Pain Level 0 06/21/25 10:29 Assessment Mental Status: Awake (Alert & Oriented to Patient Baseline) Airway and Respiratory Function: Patent airway with normal (patient baseline) respiratory exam Cardiovascular Function: Hemodynamically Stable Hydration Status: Adequately Hydrated Nausea & Vomiting: No Nausea or Vomiting Pain: Pt. Denies Any Pain Peripheral Nerve Block: Patient did not receive a nerve block
== END 2025-06-21 10:49 | disposition home or self-care (01) ==
PROVIDERS: PCP Nurse Practitioner Family; Visit Provider Surgery
PROC: 0DJD8ZZ Inspection of Lower Intestinal Tract, Via Natural or Artificial Opening Endoscopic (ICD-10-PCS; CPT 45378; principal; 2025-06-21 10:30)
DX: Z12.11 Encounter for screening for malignant neoplasm of colon (principal); Z12.12 Encounter for screening for malignant neoplasm of rectum; D12.8 Benign neoplasm of rectum
CPT/HCPCS: 45385; 88305; J2704

== ENCOUNTER 2025-06-29 16:10 | Outpatient (REF) | payer MEDICAID, SELFPAY ==
--- NOTE | 2025-06-29 11:15 | PAPFT_PTH ---
PATIENT: Ayala Galloway LOC: [facility]#:[id number] AGE/SX: 44/F ROOM: RE06/29/[address]: Danya Deras : 1980 BED: DIS: 06/29/2025 SPEC #: [id number] RECD: 06/29/25 16:33 STATUS: KAJAL REQ #: [id number] SAFIA: 06/29/25 11:[address]: Danya Deras DEPT: [facility] Cytology RECD BY: Ngozi Isaac Tissues: 1 - CX/ENDOCX FOR PAP SMEARS Procedures: PAP THIN PREP/[facility] Screening HPV DNA PROBE Comments: [id number] (HPV 16 & 18/45) (CHLAMYDIA/GC)
[2025-07-02 12:21] LABS: Chlamydia Result Negative (Negative); GC Result Negative (Negative)
== END 2025-06-29 16:11 | disposition home or self-care (01) ==
LOC: NCHCN 16:10
PROVIDERS: PCP Nurse Practitioner Family; Visit Provider Nurse Practitioner Family
DX: Z12.4 Encounter for screening for malignant neoplasm of cervix (principal)
CPT/HCPCS: 87491; 87591; 88142; 87624

== ENCOUNTER 2025-07-18 02:07 | Outpatient (CLI) | payer MEDICAID, SELFPAY ==
--- NOTE | 2025-07-18 | DI.US_ITS ---
Exam(s) US PELVIS TRANSVAGINAL EXAM: US PELVIS TRANSVAGINAL CLINICAL HISTORY: EXCESSIVE FREQUENT MENSTRATION N92.0 MENORRHAGIA W/REG CYCLE TECHNIQUE: Transabdominal and transvaginal imaging was performed using standard protocol. COMPARISON: No exams were available for comparison FINDINGS: The bladder is unremarkable as visualized. UTERUS: Anteverted. Endometrium: 18 mm, homogeneous. Myometrium: Posterior lower uterine segment fibroid measuring 4 x 3.5 x 3.7 cm Cervix: Nabothian cysts OVARIES: Right: Cyst or mass: None. Left: Cyst or mass: None. DOPPLER: Color: Symmetric and uniform flow to both ovaries. No hyperemia. CUL-DE-SAC: Free fluid: None. IMPRESSION: 1. 4 centimeter posterior fibroid. Endometrium appears mildly thickened at 18 millimeters but homogeneous.. 2. Unremarkable bilateral ovaries. DATA REPOSITORY:
== END 2025-07-18 02:27 ==
LOC: DI 02:07
PROVIDERS: PCP Nurse Practitioner Family; Visit Provider Nurse Practitioner Family
DX: N92.0 Excessive and frequent menstruation with regular cycle (principal); D25.2 Subserosal leiomyoma of uterus
CPT/HCPCS: 76830; 76856